=== PATIENT | female | born 1995 | race Caucasian/White ===

== ENCOUNTER 2019-12-25 20:43 | Emergency (ER) | payer OTHER ==
[~2019-12-25] VITALS: Ht 162.6 cm; Wt 60.8 kg
[2019-12-25] MEDS ORDERED: AZITHROMYCIN 250 MG TAB PO STA (21:28)
[2019-12-25] MEDS ORDERED: CEFTRIAXONE SOD 500 MG VIAL IM ONE (21:30)
[2019-12-25] MEDS ORDERED: AZITHROMYCIN 250 MG TAB ONE (21:38)
[2019-12-25] MEDS ORDERED: CEFTRIAXONE SOD 500 MG VIAL ONE (21:38)
[2019-12-25] MEDS ORDERED: ZOFRAN4 MG PO (22:22)
[2019-12-25] MEDS ORDERED: ONDANSETRON HCL 4 MG ORAL DISINTEGRATING TAB ONE (22:25)
[2019-12-25] MEDS ORDERED: DOXYCYCLINE HY100 MG PO (22:26)
--- NOTE | 2019-12-25 22:44 | Emergency Department Note ---
History of Present Illnes History of Present Illness Chief Complaint: Eye, Ear, Nose, Throat, Dental History of Present Illness This is a 24 year old female who presents with sore throat X 4 days. Hurts to swallow. No Fever, chills, runny nose, headache, lack of taste/smell, cough. No sick contacts. Has performed oral sex and states possible exposure to STD. However, denies any complaints. Historian: Patient Arrival Mode: Car Manager Policy Required: No Onset (how long ago): day(s) Location: throat Quality: pain Radiation: Reports non-radiation Severity: moderate Onset quality: gradual Duration (how long): day(s) Timing of current episode: constant Progression: worsening Chronicity: new Context: Reports recent travel (Returned from [facility] from being in wedding) Relieving factors: none Exacerbating factors: other (swallowing) Associated symptoms: Reports loss of appetite; Denies confusion, Denies chest pain, Denies cough, Denies diaphoresis, Denies fever/chills, Denies headaches, Denies malaise, Denies nausea/vomiting, Denies rash Past Medical/Family History Physician Review I have reviewed the patient's past medical and family history. Any updates have been documented here. Past Medical History Recent Fever: No Clinical Suspicion of Infectio: No New/Unexplained Change in Ment: No Past Medical History: None Past Surgical History: None Social History Smoking Cessation: Never Smoker Counseling Performed: No Alcohol Use: None Any Illegal Drug Use: No Other Any Pre-Existing Lines (PICC,: No Review of Systems Review of Systems Constitutional: Denies chills, Denies diaphoresis, Denies fever EENTM: Reports throat pain, Reports throat swelling; Denies nose congestion Cardiovascular: Denies chest pain, Denies edema Respiratory: Denies cough, Denies dyspnea, Denies dyspnea on exertion Gastrointestinal: Denies diarrhea, Denies nausea, Denies vomiting Genitourinary: Denies dysuria Musculoskeletal: Denies back pain, Denies joint swelling, Denies muscle pain, Denies muscle stiffness Integumentary: Denies rash Neurological: Denies headache Endocrine: Denies increased hunger, Denies increased thirst Physical Exam Related Data Allergies: Coded Allergies: No Known Allergies (Unverified , 12/25/19) Triage Vital Signs Vital Signs Date Time Temp Pulse Resp B/P (MAP) Pulse Ox O2 Delivery O2 Flow Rate FiO2 12/25/19 21:00 98.6 74 18 119/65 98 Room Air Physical Exam CONSTITUTIONAL Constitutional: Present well-developed, Present well-nourished HENT HENT: Present normocephalic, Present atraumatic, Present oropharynx clear/moist, Present nose normal HENT L/R: Present left ext ear normal, Present right ext ear normal EYES Eyes: Reports conjunctivae normal; Denies left eye discharge NECK Neck: Present ROM normal, Present supple PULMONARY Pulmonary: Present effort normal, Present breath sounds normal CARDIOVASCULAR Cardiovascular: Present regular rhythm, Present heart sounds normal, Present intact distal pulses, Present capillary refill normal GASTROINTESTINAL Abdominal: Present soft, Present nontender, Present bowel sounds normal GENITOURINARY Genitourinary: Present exam deferred SKIN Skin: Present warm, Present dry; Absent rash MUSCULOSKELETAL Musculoskeletal: Absent edema, Absent deformity NEUROLOGICAL Neurological: Present alert, Present oriented x 3, Present no gross motor or sensory deficits PSYCHOLOGICAL Psychological: Present mood/affect normal, Present behavior normal, Present thought content normal Assessment & Plan Medical Decision Making MDM Differential dx includes, but not limited to: epiglottitis, retropharyngeal abscess or cellulitis, tonsillopharyngitis. Strep negative. Will treat for STD given patient's history of possible throat exposure to STD. Denies any symptoms. Patient got IM Rocephin. Gram of zitromax caused patient to vomit. D/C with zofran and rx for doxy. Assessment & Plan Final Impression: (1) Pharyngitis Depart Disposition: HOME, SELF-CARE Last Vital Signs Date Time Temp Pulse Resp B/P (MAP) Pulse Ox O2 Delivery O2 Flow Rate FiO2 12/25/19 21:00 98.6 74 18 119/65 98 Room Air Home Meds Active Scripts Doxycycline Hyclate (DOXYCYCLINE HYCLATE) 100 Mg Capsule, 100 MG PO BID, #14 0 Refills Prov:AKIKO ENRIQUE MD 12/25/19 Ondansetron Hcl* (ZOFRAN*) 4 Mg Tablet, 4 MG PO Q4HR for nausea/vomiting, #10 Prov:AKIKO ENRIQUE MD 12/25/19 Medications in the ED Azithromycin 1,000 mg NOW STAT PO Last administered on 12/25/19at 21:38; Admin Dose 1,000 MG; Start 12/25/19 at 21:28; Stop 12/25/19 at 21:33; Status DC Ceftriaxone Sodium 500 mg ONCE ONCE IM Last administered on 12/25/19at 21:39; Admin Dose 500 MG; Start 12/25/19 at 21:30; Stop 12/25/19 at 21:33; Status DC Azithromycin 1,000 mg STK-MED ONCE .ROUTE ; Start 12/25/19 at 21:38; Stop 12/25/19 at 21:32; Status DC Ceftriaxone Sodium 500 mg STK-MED ONCE .ROUTE ; Start 12/25/19 at 21:38; Stop 12/25/19 at 21:33; Status DC Ondansetron HCl 4 mg STK-MED ONCE .ROUTE ; Start 12/25/19 at 22:25; Stop 12/25/19 at 22:21; Status DC AKIKO ENRIQUE MD Dec 25, 2019 22:44
== END 2019-12-25 22:00 | disposition home or self-care (01) ==
LOC: FSED 21:30
DX: J02.9 Acute pharyngitis, unspecified (principal)
CPT/HCPCS: 83518; 99282; J0696; Q0162